=== PATIENT | male | born 1950 | race Caucasian/White ===

== ENCOUNTER → 2018-05-05 | Outpatient (REF) | payer OTHER | LOC: M LAB REF 16:35 | PROVIDERS: ATTEND Physician Assistant | DX: L03.113 Cellulitis of right upper limb (principal) ==

== ENCOUNTER → 2020-08-12 | Outpatient (CLI) | payer MEDICARE, OTHER ==
[~2020-08-12] MED LIST: ECOT81TA5 PO; SIMV40TA20 PO
== END ==
LOC: M LABSMTC 12:48
PROVIDERS: ATTEND Anesthesiology
DX: Z01.812 Encounter for preprocedural laboratory examination (principal); Z11.52 Encounter for screening for COVID-19

== ENCOUNTER 2020-08-17 11:01 | Day surgery (SDC) | payer MEDICARE, BC, OTHER ==
[~2020-08-17] VITALS: Ht 180.3 cm; Wt 98.0 kg
[~2020-08-17 11:01] MED LIST changes: +NS 1,000 ML IV ONE
[2020-08-17] MEDS ORDERED: LIDOCAINE 2% MDV 20ML VIAL As Ordered ONE (12:12)
[2020-08-17] MEDS ORDERED: propofoL 200 MG/20 ML VIAL As Ordered ONE (12:12)
--- NOTE | 2020-08-17 12:26 | ROOR ---
Patient Name: Terrell Capone Procedure Date: 08/17/2020 12:14 PM Date of : 1950 Age: 70 Room: [facility] Gender: Male Note Status: Finalized Procedure: Total Colonoscopy to Cecum Indications: High risk colon cancer surveillance: Personal history of colonic polyps, Last colonoscopy: 2015 Providers: Yash Perera MD Referring MD: Obdulio Norton MD Requesting Provider: Medicines: Monitored Anesthesia Care Complications: No immediate complications. Procedure: Pre-Anesthesia Assessment: - The heart rate, respiratory rate, oxygen saturations, blood pressure, adequacy of pulmonary ventilation, and response to care were monitored throughout the procedure. The Colonoscope was introduced through the anus and advanced to the ileocolonic anastomosis. The colonoscopy was performed without difficulty. The patient tolerated the procedure well. The quality of the bowel preparation was good. Findings: The perianal and digital rectal examinations were normal. Multiple small and large-mouthed diverticula were found in the recto-sigmoid colon, sigmoid colon and descending colon. The exam was otherwise without abnormality on direct and retroflexion views. Impression: - Diverticulosis in the recto-sigmoid colon, in the sigmoid colon and in the descending colon. - The examination was otherwise normal on direct and retroflexion views. - No specimens collected. - The exam was otherwise normal to the cecum. Recommendation: - Patient has a contact number available for emergencies. The signs and symptoms of potential delayed complications were discussed with the patient. Return to normal activities tomorrow. Written discharge instructions were provided to the patient. - High fiber diet. - Discharge patient to home. - Continue present medications. - Repeat colonoscopy in 5 years for surveillance. - Return to referring physician. - The findings and recommendations were discussed with the patient's family. Procedure Code(s): --- Professional --- G0105, Colorectal cancer screening; colonoscopy on individual at high risk Diagnosis Code(s): --- Professional --- Z86.010, Personal history of colonic polyps K57.30, Diverticulosis of large intestine without perforation or abscess without bleeding CPT copyright 2019 [employer]. All rights reserved. The codes documented in this report are preliminary and upon vet tech review may be revised to meet current compliance requirements. Yash Perera MD Yash Perera MD 08/17/2020 12:26:12 PM Electronically signed by Yash Perera MD Number of Addenda: 0 Note Initiated On: 08/17/2020 12:14 PM Estimated Blood Loss: Estimated blood loss: none.
[2020-08-17 12:45] VITALS: BP 149/67
== END 2020-08-17 13:19 | disposition home or self-care (01) ==
LOC: M OPP 11:01
PROVIDERS: ATTEND Internal Medicine Gastroenterology
DX: Z12.11 Encounter for screening for malignant neoplasm of colon (principal); Z86.010 Personal history of colon polyps; K57.30 Diverticulosis of large intestine without perforation or abscess without bleeding; Z79.82 Long term (current) use of aspirin; Z79.899 Other long term (current) drug therapy; Z87.891 Personal history of nicotine dependence

== ENCOUNTER → 2020-11-09 | Outpatient (CLI) | payer MEDICARE, BC, OTHER ==
[~2020-11-09] MED LIST changes: -NS 1,000 ML IV ONE
--- NOTE | 2020-11-09 11:56 | REP ---
INDICATION: AAA SCREENING COMPARISON: Tubal suprarenal abdominal aortic aneurysm TECHNIQUE: Multiple ultrasonographic images of the abdominal aorta were obtained from the level of the celiac access to the aortoiliac bifurcation and the longitudinal and transverse scan planes along with color Doppler imaging. FINDINGS: The maximal AP dimension of the abdominal aorta as measured in the longitudinal scan plane is difficult to assess due to the patient's intestinal gas pattern. An accurate measurement of the proximal aorta cannot be obtained.. There is 1 image provided which seems to estimate the maximal AP dimension being 3.6 cm. That image is limited in its resolution. IMPRESSION: Possible proximal suprarenal abdominal aortic aneurysm. Contrast-enhanced CTA is recommended. <Electronically signed by Elkin Escoto > 11/09/20 [id number]
== END ==
LOC: M RAD 08:50
PROVIDERS: ATTEND Family Medicine
DX: I71.4 Abdominal aortic aneurysm, without rupture (principal)

== ENCOUNTER → 2020-12-05 | Outpatient (CLI) | payer MEDICARE, BC, OTHER ==
[~2020-12-05] MED LIST changes: +ISOVUE-370 76% 100ML VIAL ONE
--- NOTE | 2020-12-05 15:56 | REP ---
INDICATION: AAA. Possible proximal abdominal aortic aneurysm on sonography. COMPARISON: Abdominal aortic sonography November 09, 2020. TECHNIQUE: Helical scanning is acquired following the intravenous injection of 100 mL of Isovue 370. 3 mm axial images re-formatted. Coronal and sagittal MPR images are generated. In addition 3D surface rendered images are produced and viewed in a spin and tumble rotational format. FINDINGS: Nonvascular abnormalities include fairly extensive left colonic diverticulosis. A normal appearing elongate appendix is noted terminating in the central abdomen. Vascular findings. There is good opacification of the arterial tree. The lower thoracic and upper abdominal suprarenal segment of the abdominal aorta is normal in caliber although somewhat tortuous. No aortic aneurysm is seen. There is some vascular calcification in the infrarenal abdominal aorta but this segment of the aorta is normal in caliber as well measuring 2.1 cm in AP dimension. Singular nonstenotic renal arteries are observed bilaterally. The superior mesenteric artery and inferior mesenteric artery origins are normal. There is mild aneurysmal dilation of the proximal celiac axis which has a slightly beaded appearance. No stenosis is seen. The origin of the celiac axis measures 7 mm. The aneurysmal segment measures 10 mm in greatest diameter. No thrombus is seen. No other visceral artery aneurysm is seen. The common iliac arteries are widely patent. The proximal external and internal iliacs are patent bilaterally as well. IMPRESSION: 1. No evidence of abdominal aortic aneurysm. There is some aortic tortuosity. 2. 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 3. Left colonic diverticulosis. <Electronically signed by Tyron Ramon > 12/05/20 [id number]
== END ==
LOC: M PLAIMG 12:57
PROVIDERS: ATTEND Family Medicine
DX: I72.8 Aneurysm of other specified arteries (principal); K57.92 Diverticulitis of intestine, part unspecified, without perforation or abscess without bleeding
CPT/HCPCS: 74175; Q9967

== ENCOUNTER → 2023-04-10 | Outpatient (REF) | payer MEDICARE, OTHER ==
[~2023-04-10] MED LIST changes: -ISOVUE-370 76% 100ML VIAL ONE
== END ==
LOC: M SFHCDERM 17:49
PROVIDERS: ATTEND Physician Assistant
DX: L82.1 Other seborrheic keratosis (principal); L57.8 Other skin changes due to chronic exposure to nonionizing radiation